=== PATIENT | female | born 1955 | race Caucasian/White ===

== ENCOUNTER 2017-06-16 22:19 | Inpatient (IN) | payer BC, OTHER ==
[2017-06-16] MEDS ORDERED: EPINEPHrine/PF 1 MG/1 ML (1:1,000) AMPULE ONE ×2 (22:27→23:11)
[2017-06-16] MEDS ORDERED: methylPREDNISolone NA SUCC 125 MG/2 ML VIAL ONE (22:28)
[2017-06-16] MEDS ORDERED: FAMOTIDINE 20 MG/50 ML IVPB 50 ML IVPB ONE ×2 (22:31→22:36)
[2017-06-16] MEDS ORDERED: SODIUM CHLORIDE 1,000 ML IV STA (22:31)
[2017-06-16] MEDS ORDERED: EPINEPHrine 1:1,000 1 MG/1 ML - 30ML VIAL (INJECTION) SQ ONE (22:31)
[2017-06-16] MEDS ORDERED: methylPREDNISolone NA SUCC 125 MG/2 ML VIAL IVPB ONE (22:36)
[2017-06-16] MEDS ORDERED: EPINEPHrine/PF 1 MG/1 ML (1:1,000) AMPULE IM ONE (23:01)
--- NOTE | 2017-06-16 23:08 | PDOC ---
History of Present Illness - General Chief Complaint: Allergic Reaction Stated Complaint: SOB/ ALLERGIC REACTION Time Seen by Provider: 06/16/17 22:25 History Source: Patient Exam Limitations: No Limitations - History of Present Illness Initial Comments: 06/16/17 23:03 61yo Female patient w/ PmHx: HTN, HLD, Angioedema presents to ED c/o tongue and mouth swelling. Patient states she was eating a bag of mixed vegetables as usual when her mouth began to swelling. Patient became concern because swelling extended down to her throat. Patient having difficulty talking, but is managing saliva and moving air. She denies any other complaints and use of JAVED/ARBs. Past History - Travel Traveled outside of the country in the last 30 days: No Close contact w/someone who was outside of country & ill: No - Past Medical History Allergies/Adverse Reactions: Allergies Allergy/AdvReac Type Severity Reaction Status Date / Time No Known Allergies Allergy Verified 06/16/17 22:40 Home Medications: Ambulatory Orders NK [No Known Home Medication] 06/16/17 - Psycho/Social/Smoking Cessation Hx Suicidal Ideation: No Smoking History: Unknown if ever smoked Information on smoking cessation initiated: No Hx Alcohol Use: No Drug/Substance Use Hx: No Review of Systems - Review of Systems Able to Perform ROS?: Yes Is the patient limited Vietnamese proficient: No HEENTM: Yes: Throat Swelling, Mouth Swelling, Other (Tongue Swelling) Respiratory: No: Cough, Shortness of Breath, Stridor, Wheezing Cardiac (ROS): No: Chest Pain ABD/GI: No: Constipated, Diarrhea, Nausea, Poor Appetite, Poor Fluid Intake, Vomiting : No: Dysuria, Flank Pain, Hematuria Musculoskeletal: No: Back Pain All Other Systems: Reviewed and Negative *Physical Exam - Vital Signs Last Vital Signs Temp Pulse Resp BP Pulse Ox 97.7 F 89 22 144/76 96 06/16/17 22:20 06/16/17 22:20 06/16/17 22:20 06/16/17 22:20 06/16/17 22:20 - Physical Exam General Appearance: Yes: Nourished, Appropriately Dressed, Mild Distress. No: Apparent Distress, Moderate Distress, Severe Distress HEENT: positive: EOMI, BENJAMIN, Normal ENT Inspection, Normal Voice, Symmetrical, TMs Normal, Other (Swollen Tongue, lips and throat. Mild.). negative: Pharynx Normal, Pharyngeal Erythema, Tonsillar Exudate, Tonsillar Erythema, TM Bulging, TM Dull, TM Erythema, Excessive drooling Neck: positive: Trachea midline, Normal Thyroid, Supple. negative: Tender, Rigid, Decreased range of motion, Lymphadenopathy (R), Lymphadenopathy (L), Rigidity, Tender lateral, Tender midline Respiratory/Chest: positive: Lungs Clear, Normal Breath Sounds. negative: Chest Tender, Respiratory Distress, Accessory Muscle Use, Labored Respiration, Rapid RR, Rhonchi, Stridor, Wheezing Cardiovascular: positive: Regular Rhythm, Regular Rate Musculoskeletal: positive: Normal Inspection. negative: CVA Tenderness Extremity: positive: Normal Capillary Refill, Normal Inspection, Normal Range of Motion. negative: Pedal Edema, Swelling, Calf Tenderness, Erythema, Inflammation Integumentary: positive: Normal Color, Dry, Warm. 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, Fully Oriented, Alert, Normal Mood/ Affect, Normal Response, Motor Strength 02/25 ED Treatment Course - LABORATORY CBC & Chemistry Diagram: 06/16/17 23:25 06/16/17 23:25 - Medications Given in the ED: ED Medications Discontinued Medications Generic Name Dose Route Start Last Admin Trade Name Freq PRN Reason Stop Dose Admin Diphenhydramine HCl 50 mg 06/16/17 22:36 06/16/17 22:37 Benadryl Injection - IVPB 06/16/17 22:37 50 mg ONCE ONE Administration Epinephrine HCl 300 mcg 06/16/17 22:31 06/16/17 22:37 Epinephrine 1:1,000 - SQ 06/16/17 22:32 300 mcg ONCE ONE Administration Famotidine/Sodium Chloride 50 mls @ 100 mls/hr 06/16/17 22:31 06/16/17 22:37 Pepcid 20 Mg Premixed Ivpb - IVPB 06/16/17 23:00 100 mls/hr ONCE ONE Administration Methylprednisolone Sodium Succinate 125 mg 06/16/17 22:36 06/16/17 22:38 Solu-Medrol - IVPB 06/16/17 22:37 125 mg ONCE ONE Administration Medical Decision Making - Medical Decision Making 06/17/17 02:10 Initially ICU did not accept patient. Dr. Mead contact ICU practitioner and patient was accepted. I did not give report or HPI to the accepting provider. *DC/Admit/Observation/Transfer Diagnosis at time of Disposition: Angioedema Qualifiers: Encounter type: initial encounter Qualified Code(s): T78.3XXA - Angioneurotic edema, initial encounter - Discharge Dispostion Condition at time of disposition: Fair Admit: Yes
--- NOTE | 2017-06-16 23:29 | PDOC ---
*Physical Exam - Vital Signs Last Vital Signs Temp Pulse Resp BP Pulse Ox 97.7 F 91 H 20 144/76 98 06/16/17 22:20 06/16/17 23:21 06/16/17 23:21 06/16/17 22:20 06/16/17 23:21 ED Treatment Course - LABORATORY CBC & Chemistry Diagram: 06/18/17 06:00 06/18/17 06:00 - Medications Given in the ED: ED Medications Discontinued Medications Generic Name Dose Route Start Last Admin Trade Name Lydia PRN Reason Stop Dose Admin Diphenhydramine HCl 50 mg 06/16/17 22:36 06/16/17 22:37 Benadryl Injection - IVPB 06/16/17 22:37 50 mg ONCE ONE Administration Epinephrine HCl 300 mcg 06/16/17 22:31 06/16/17 22:37 Epinephrine 1:1,000 - SQ 06/16/17 22:32 300 mcg ONCE ONE Administration Epinephrine HCl 500 mcg 06/16/17 23:01 06/16/17 23:14 Epinephrine 1:1000 P/F - IM 06/16/17 23:02 500 mcg ONCE ONE Administration Famotidine/Sodium Chloride 50 mls @ 100 mls/hr 06/16/17 22:31 06/16/17 22:37 Pepcid 20 Mg Premixed Ivpb - IVPB 06/16/17 23:00 100 mls/hr ONCE ONE Administration Famotidine/Sodium Chloride 50 mls @ 100 mls/hr 06/16/17 22:36 06/16/17 22:38 Pepcid 20 Mg Premixed Ivpb - IVPB 06/16/17 23:05 Not Given ONCE ONE Methylprednisolone Sodium Succinate 125 mg 06/16/17 22:36 06/16/17 22:38 Solu-Medrol - IVPB 06/16/17 22:37 125 mg ONCE ONE Administration Medical Decision Making - Medical Decision Making 06/16/17 23:29 agree with care from KELSIE Daniels *DC/Admit/Observation/Transfer Diagnosis at time of Disposition: Angio-edema - Discharge Dispostion Disposition: HOME Condition at time of disposition: Improved - Prescriptions
[2017-06-16 23:46] LABS: BASOPHIL 0.8 % (0-2.0); EOSINOPHIL 3.3 % (0-4.5); MCHC 33.8 g/dl (32.0-36.0); MEAN CELL VOLUME 100.8 fl (80-96); MEAN PLT VOLUME 7.8 fl (7.5-11.1); NEUTROPHILS 55.2 % (42.8-82.8); PLATELET COUNT 263 K/MM3 (134-434); RDW 13.4 % (11.6-15.6); WHITE BLOOD COUNT 15.4 K/mm3 (4.0-10.0)
[2017-06-17 00:10] LABS: ALBUMIN 3.8 g/dl (3.4-5.0); BILIRUBIN,TOTAL 0.6 mg/dL (0.2-1.0); CALCIUM 8.5 mg/dL (8.5-10.1); CO2 24 mmol/L (21-32); CREATININE 0.7 mg/dL (0.55-1.02); GLUCOSE,RANDOM 169 mg/dL (74-106); SGOT/AST 58 U/L (15-37); SGPT/ALT 76 U/L (12-78); TOT PROT 6.9 g/dl (6.4-8.2)
[2017-06-17 00:52] LABS: ALK PHOS 133 U/L (45-117); ANION GAP 13 (8-16)
--- NOTE | 2017-06-17 00:52 | PN ---
Teaching Attending Note Name of Resident: Opal Lomeli ATTENDING PHYSICIAN STATEMENT I saw and evaluated the patient. I reviewed the resident's note and discussed the case with the resident. I agree with the resident's findings and plan as documented. SUBJECTIVE: 61 F with Pmhx of HTN, HLD, and angioedema presents with edema of her tongue/ mouth, Notes she was eating mixed vegetables when she felt her tongue and mouth swell. Upon arrival to ED, pt. was having difficulty speaking, she was given Epi , Pepcid, Benadryl, and Solu-Medrol in ED, with improvement in her symptoms. Pt. able to speak full sentences, although not clearly. States that 4X in the past her tongue has swollen, but never to this extent and she did not seek medical attention at that time. OBJECTIVE: Physical: VS: Vital Signs Period Temp Pulse Resp BP Sys/Hurtado Pulse Ox Last 24 Hr 97.7 F 89-91 20-22 144/76 96-98 GEN: NAD, resting in bed, able to speak full sentences HEENT: NCAT, PERRL, Tongue edematous with swelling to arch, unable to view adenoids or uvula due to tongue edema CARD: RRR S1, S2 RESP: CTAB ABD: BSX4, NTD to palpation EXT: - C/C/E CBCD WBC 15.4 K/mm3 (4.0-10.0) H 06/16/17 23:25 RBC 3.97 M/mm3 (3.60-5.2) 06/16/17 23:25 Hgb 13.5 GM/dL (10.7-15.3) 06/16/17 23:25 Hct 40.0 % (32.4-45.2) 06/16/17 23:25 MCV 100.8 fl (80-96) H 06/16/17 23:25 MCHC 33.8 g/dl (32.0-36.0) 06/16/17 23:25 RDW 13.4 % (11.6-15.6) 06/16/17 23:25 Plt Count 263 K/MM3 (134-434) 06/16/17 23:25 MPV 7.8 fl (7.5-11.1) 06/16/17 23:25 CMP Sodium 138 mmol/L (136-145) 06/16/17 23:25 Potassium 3.3 mmol/L (3.5-5.1) L 06/16/17 23:25 Chloride 101 mmol/L (98-107) 06/16/17 23:25 Carbon Dioxide 24 mmol/L (21-32) 06/16/17 23:25 Anion Gap 13 (8-16) 06/16/17 23:25 BUN 17 mg/dL (7-18) 06/16/17 23:25 Creatinine 0.7 mg/dL (0.55-1.02) 06/16/17 23:25 Creat Clearance w eGFR > 60 (>60) 06/16/17 23:25 Random Glucose 169 mg/dL (74-106) H 06/16/17 23:25 Calcium 8.5 mg/dL (8.5-10.1) 06/16/17 23:25 Total Bilirubin 0.6 mg/dL (0.2-1.0) 06/16/17 23:25 AST 58 U/L (15-37) H 06/16/17 23:25 ALT 76 U/L (12-78) 06/16/17 23:25 Alkaline Phosphatase 133 U/L (45-117) H 06/16/17 23:25 Total Protein 6.9 g/dl (6.4-8.2) 06/16/17 23:25 Albumin 3.8 g/dl (3.4-5.0) 06/16/17 23:25 Home Medications Medication Instructions Recorded NK [No Known Home Medication] 06/16/17 Soft Tissue Neck- Pending official read ASSESSMENT AND PLAN: 61 F with pmhx of HTN, Smoking,HLD, And Angioedema presents with tongue, mouth edema being admitted for Angioedema 1.) Angioedema - NPO - ESR, CRP, C4 - FFP if no Impovement or worsening 4 U as per ENT - S/P Epi X3, Benadryl, Jenna-Medrol, Pepcid- Can repeat Benadryl/Solu-Medrol if symptoms worsen or epi gtt - FU Soft-Tissue Neck - ENT consulted and reccs appreciated 2.) HTN - On Amlodipine, denies any JAVED/ARBS - Hold PO Meds 3.) HLD - Hold PO meds 4.) Smoking - HOLD Chantix as this can cause Angioedema 5.) Dvt PPx - Heparin [address] in ICU CC Time: 60 Minutes
[2017-06-17] MEDS ORDERED: EPINEPHrine 1:1,000 1 MG/1 ML - 30ML VIAL (INJECTION) SQ ONE (02:05)
[2017-06-17 03:12] VITALS: BMI 25.7
[2017-06-17] MEDS ORDERED: PNEUMOC 13-VAL CONJ-DIP CRM/PF 0.5 ML DISP.SYRIN IM ONE (03:12)
[2017-06-17] MEDS: SODIUM CHLORIDE 1,000 ML IV SCH ×4 (03:30→21:28)
--- NOTE | 2017-06-17 04:07 | HP ---
CHIEF COMPLAINT: tongue and throat swelling ENT/Section Housekeeper/PCP(?): Dr. Knowles HISTORY OF PRESENT ILLNESS: 61yo F with PMH of HTN, HLD, angioedema presents c/o tongue and throat swelling. Swelling began at 8:45pm tonight, 30-40 minutes after she finished eating dinner consisting of steak, beans and mixed vegetables. None of these foods are new for her, she has eaten each of these foods before. Swelling started with her tongue and spread down her throat, prompting pt to come to the ER. Pt reports a hx of a few episodes of angioedema, but each time it only involved her tongue swelling into a ball, the swelling never spread to her throat. The pt did not seek medical attention on any of these previous occasions. The first episode was 7 yrs ago, and pt reports 4 episodes in the last year. The pt attibutes the episodes from this year to perfume. She sprays her perfume in the air and walks through the mist, sometimes a drop of perfume will land on her lip that she removes with her tongue, and she noticed a pattern of this resulting in tongue swelling. She no longer uses perfume. Pt reports seeing an Section Housekeeper/ENT (Dr. Knowles) who gives her injections in her nose for unknown environmental allergies. Regarding this episode pt reports the only change in her daily life is starting a new medication, Chantix , 2 days ago. Pt reports Chantix causes her to feel nauseous, resulting in 1 episode of nbnb vomiting earlier today, (prior to angioedema). Upon arrival in ER pt was having difficulty speaking 2/2 swelling, but was managing her saliva and air movement. In ER pt was given Epinephrine, Pepcid, Benadryl, and Solu-medrol with some improvement of symptoms. At time of interview pt was able to speak in full sentences and reports the swelling is going down. Pt denies use of ACEi/ARB. ER course was notable for: (1) Epi, Pepcid, Benadryl, Solu-medrol (2) CXR, Soft-Tissue Neck XRay both pending Recent Travel: none PAST MEDICAL HISTORY: angioedema HTN HLD PAST SURGICAL HISTORY: Social History: Smokin ppd x 45 yrs Alcohol: 2 drinks per day, wine Drugs: none Family History: No family hx of angioedema. Daughter with allergy to peas, carries an Epi pen for this allergy. Allergies Unknown environmental allergies No Known Allergies Allergy (Verified 06/16/17 22:40) HOME MEDICATIONS: Pt reports home meds of Albuterol, Singulair, Amlodipine, Nexium, a pill for bladder strength and Chantix, uncertain of doses. Home Medications Medication Instructions Recorded NK [No Known Home Medication] 06/16/17 REVIEW OF SYSTEMS CONSTITUTIONAL: Absent: fever, chills, diaphoresis, generalized weakness, HEENT: Present: tongue and throat swelling, tongue pain Absent: throat pain, ear pain, eye pain, visual changes CARDIOVASCULAR: Absent: chest pain, palpitations, irregular heart rate, lightheadedness, peripheral edema RESPIRATORY: Absent: cough, shortness of breath, dyspnea with exertion, wheezing, stridor, hemoptysis GASTROINTESTINAL: Present: nausea, vomiting Absent: abdominal pain, abdominal distension, diarrhea, constipation, melena, hematochezia GENITOURINARY: Present: urgency Absent: dysuria, frequency, hesitancy, hematuria, flank pain MUSCULOSKELETAL: Absent: myalgia, arthralgia, joint swelling, back pain SKIN: Absent: rash, itching, pallor NEUROLOGIC: Absent: focal weakness or paresthesias, dizziness, unsteady gait, seizure, mental status changes, bladder or bowel incontinence PHYSICAL EXAMINATION Last Vital Signs Temp Pulse Resp BP Pulse Ox 97.8 F 88 17 128/71 98 06/17/17 02:21 06/17/17 02:23 06/17/17 02:23 06/17/17 02:23 06/17/17 02:23 GENERAL: Awake, alert, and fully oriented, in mild distress. HEAD: Normal with no signs of trauma. EYES: Pupils equal, round and reactive to light, extraocular movements intact, sclera anicteric, conjunctiva clear. No lid lag. EARS, NOSE, THROAT: Mallampati score IV. Unable to visualize adenoids or uvula. Moist mucous membranes. LUNGS: Breath sounds equal, clear to auscultation bilaterally. No wheezes, and no crackles. No accessory muscle use. HEART: Regular rate and rhythm, normal S1 and S2 without murmur, rub or gallop. ABDOMEN: Soft, nontender, not distended, normoactive bowel sounds, no guarding, no rebound, no masses. MUSCULOSKELETAL: Normal range of motion at all joints. No bony deformities or tenderness. LOWER EXTREMITIES: Warm, well-perfused. No calf tenderness. No peripheral edema. NEUROLOGICAL: Normal speech. PSYCHIATRIC: Cooperative. Good eye contact. Appropriate mood and affect. SKIN: (-) urticaria. Warm, dry, normal turgor, no rashes or lesions noted. Laboratory Results - last 24 hr 06/16/17 06/16/17 23:25 23:25 WBC 15.4 H RBC 3.97 Hgb 13.5 Hct 40.0 MCV 100.8 H MCH 34.0 H MCHC 33.8 RDW 13.4 Plt Count 263 MPV 7.8 Neutrophils % 55.2 Lymphocytes % 34.7 Monocytes % 6.0 Eosinophils % 3.3 Basophils % 0.8 Sodium 138 Potassium 3.3 L Chloride 101 Carbon Dioxide 24 Anion Gap 13 BUN 17 Creatinine 0.7 Creat Clearance w eGFR > 60 Random Glucose 169 H Calcium 8.5 Total Bilirubin 0.6 AST 58 H ALT 76 Alkaline Phosphatase 133 H Total Protein 6.9 Albumin 3.8 IMAGIN06/16/17 CXR pending 06/17/17 Soft Tissue Neck XRay pending ASSESSMENT/PLAN: 61yo F with PMH of HTN, HLD, angioedema presents c/o tongue and throat swelling admitted to ICU for angioedema. 1) angioedema - ENT Consult - Dr. Vigil recommends 4U of FFP only if no improvement or worsening of symptoms - f/u Soft Tissue Neck XRay and CXR - can cont. Benadryl and Solu-medrol if symptoms worsen - f/u C1 Esterase inhibitor, Complement C4, ESR, CRP 2) HTN - Hold PO meds - No ACEi/ARB 3) smoking - HOLD CHANTIX 2/2 possible adverse rxn of angioedema - nicotine patch 21mg TD daily 4) asthma? - Pt reports taking Albuterol and Singulair for her environmental allergies. No hx of asthma reported. 5) FEN - Fluids: NS @ 125 ml/hr - Electrolytes: mild hypokalemia noted, may be 2/2 vomiting episode related to Chantix. Cont. to monitor - Nutrition: npo 2/2 angioedema 6) prophylaxis - Heparin 5000U q8hrs for DVT prophylaxis Visit type - Emergency Visit Emergency Visit: Yes Care time: The patient presented to the Emergency Department on the above date and was hospitalized for further evaluation of their emergent condition. - New Patient This patient is new to me today: Yes Date on this admission: 06/17/17 - Critical Care Critical Care patient: Yes Total Critical Care Time (in minutes): 60 Critical Care Statement: The care of this patient involved high complexity decision making to prevent further life threatening deterioration of the patient 's condition and/or to evaluate & treat vital organ system(s) failure or risk of failure.
--- NOTE | 2017-06-17 04:56 | CONSULT ---
Consult Consult Specialty:: Pulm/CCM - History of Present Illness Chief Complaint: Angioedema History of Present Illness: 61yo F with PMH of HTN, HLD, recurrent tongue swelling (4x in past year) who presents with c/o tongue swelling and now extending to throat. Etiology of angioedema unclear. Pt sees allergists for environmental allegies. She recently started Chantix. In ED pt was not in NAD, with no report of stridor, but with drooling and slight SOB. She was seen by ENT and treated with Epinephrine, Benadryl, Pepcid, Solumedrol with improvment in symptoms. She was transferred to ICU for observation and further management. - History Source History Provided By: Patient, Medical Record - Past Medical History Cardio/Vascular: Yes: HTN Pulmonary: Yes: Other (Sinus congestion) ...: No - Alcohol/Substance Use Hx Alcohol Use: Yes - Smoking History Smoking history: Current every day smoker Have you smoked in the past 12 months: Yes Aproximately how many cigarettes per day: 10 Home Medications - Allergies Allergies/Adverse Reactions: Allergies Allergy/AdvReac Type Severity Reaction Status Date / Time No Known Allergies Allergy Verified 06/16/17 22:40 - Home Medications Home Medications: Ambulatory Orders NK [No Known Home Medication] 06/16/17 Family Disease History - Family Disease History Family History: Unremarkable Review of Systems - Review of Systems Constitutional: reports: No Symptoms Eyes: reports: No Symptoms HENT: reports: Difficult Swallowing, Mouth Swelling Neck: reports: No Symptoms Cardiovascular: reports: No Symptoms Respiratory: reports: SOB Gastrointestinal: reports: No Symptoms Genitourinary: reports: Hematuria Breasts: reports: No Symptoms Reported Musculoskeletal: reports: No Symptoms Integumentary: reports: No Symptoms Neurological: reports: No Symptoms Hematology/Lymphatic: reports: No Symptoms Psychiatric: reports: No Symptoms Physical Exam Vital Signs: Vital Signs Temperature 97.8 F 06/17/17 02:21 Pulse Rate 79 06/17/17 02:27 Respiratory Rate 18 06/17/17 02:27 Blood Pressure 132/71 06/17/17 02:27 O2 Sat by Pulse Oximetry (%) 98 06/17/17 02:23 Constitutional: Yes: Well Nourished, No Distress Eyes: Yes: WNL HENT: Yes: WNL Neck: Yes: WNL, Trachea Midline Cardiovascular: Yes: WNL, Regular Rate and Rhythm Respiratory: Yes: Regular Gastrointestinal: Yes: WNL, Soft, Abdomen, Obese Renal/: Yes: WNL Extremities: Yes: WNL Edema: No Peripheral Pulses WNL: Yes Neurological: Yes: Alert ...Motor Strength: WNL Problem List - Problems (1) Angio-edema Code(s): T78.3XXA - ANGIONEUROTIC EDEMA, INITIAL ENCOUNTER Qualifiers: Encounter type: initial encounter Qualified Code(s): T78.3XXA - Angioneurotic edema, initial encounter Assessment/Plan 61 divine with Hx HTN, smoker, seasonal allergies who presents with angioedema, drooling, SOB, Symptoms relieved with Epi, Benadryl, Pepcid, solumedrol. Plan: - ENT Consult to reassess -Benadryl and Solu-medrol if symptoms worsen -NPO for now. -IVF as needed - nicotine patch 21mg TD daily -Monitor for ETOH withdrawal Proph: Hep SQ
[2017-06-17] MEDS: NICOTINE 21 MG/24 HOURS TOPICAL PATCH TD SCH ×2 (05:19→10:03)
[2017-06-17] MEDS: HEPARIN NA (PORCINE) 5,000 UNITS/ML 1ML VIAL SQ SCH ×3 (05:22→21:20)
[2017-06-17 06:15] LABS: MCH 34.3 pg (25.7-33.7); MCHC 34.3 g/dl (32.0-36.0); MEAN CELL VOLUME 100.1 fl (80-96); MEAN PLT VOLUME 8.1 fl (7.5-11.1); PLATELET COUNT 266 K/MM3 (134-434); RDW 13.5 % (11.6-15.6)
[2017-06-17 06:56] LABS: ANION GAP 6 (8-16); CALCIUM 9.3 mg/dL (8.5-10.1); CO2 26 mmol/L (21-32); CREATININE 0.7 mg/dL (0.55-1.02); GLUCOSE,RANDOM 160 mg/dL (74-106); SGOT/AST 48 U/L (15-37); SGPT/ALT 80 U/L (12-78)
[2017-06-17 06:58] LABS: ALK PHOS 152 U/L (45-117); BILIRUBIN,TOTAL 0.5 mg/dL (0.2-1.0); TOT PROT 7.3 g/dl (6.4-8.2)
[2017-06-17] MEDS ORDERED: PNEUMOCOCCAL 23 VACCINE 0.5 ML VIAL IM ONE (09:00)
[2017-06-17 09:32] LABS: URINE APPEARANCE CLEAR; URINE BILIRUBIN NEGATIVE (NEGATIVE); URINE BLOOD NEGATIVE (NEGATIVE); URINE COLOR STRAW; URINE GLUCOSE (UA) NEGATIVE (NEGATIVE); URINE KETONE TRACE (NEGATIVE); URINE LEUK ESTERASE NEGATIVE (NEGATIVE); URINE NITRITE NEGATIVE (NEGATIVE); URINE PROTEIN NEGATIVE (NEGATIVE); URINE UROBILINOGEN NEGATIVE mg/dL (0.2-1.0)
[2017-06-17] MEDS ORDERED: diphenhydrAMINE HCL 50 MG CAPSULE PO PRN ×2 (09:47→17:23)
[2017-06-17] MEDS ORDERED: methylPREDNISolone NA SUCC 125 MG/2 ML VIAL IVPB SCH (10:00)
[2017-06-17] MEDS ORDERED: RANITIDINE HCL 150 MG TABLET (FP) PO SCH (10:00)
[2017-06-17] MEDS ORDERED: FAMOTIDINE 20 MG/50 ML IVPB 50 ML IVPB SCH (10:00)
[2017-06-17] MEDS ORDERED: MUPIROCIN 2% TOPICAL OINTMENT FOR DECOLONIZATION NS SCH (10:00)
--- NOTE | 2017-06-17 12:06 | EKG ---
Test Reason : Blood Pressure : / mmHG Vent. Rate : 101 BPM Atrial Rate : 101 BPM P-R Int : 126 ms QRS Dur : 082 ms QT Int : 368 ms P-R-T Axes : 066 043 031 degrees QTc Int : 477 ms SINUS TACHYCARDIA POSSIBLE LEFT ATRIAL ENLARGEMENT NONSPECIFIC ST AND T WAVE ABNORMALITY ABNORMAL ECG NO PREVIOUS ECGS AVAILABLE Confirmed by MD ADORE, DERRICK ([id number]) on 06/17/2017 12:06:02 PM Referred By: Confirmed By:DERRICK AVITIA MD
[2017-06-17] MEDS ORDERED: SOLIFENACIN SUCCINATE 5 MG TAB (FP) PO SCH (13:15)
[2017-06-17] MEDS ORDERED: CITALOPRAM HYDROBROMIDE 20 MG TABLET (FP) PO SCH (13:15)
[2017-06-17] MEDS ORDERED: LACTOBACILLUS ACIDOPHILUS 1 EACH TAB (FP) PO SCH (13:15)
[2017-06-17] MEDS ORDERED: MONTELUKAST NA 10 MG TABLET PO SCH (13:15)
[2017-06-17] MEDS ORDERED: ASPIRIN COATED 81 MG TABLET.EC PO SCH (13:15)
[2017-06-17] MEDS ORDERED: PATIENT'S OWN MEDICATION (NON-FORMULARY) (Amlodipine Besylate/Benazepril [Lotrel 5-10 Mg C PO SCH (13:15)
--- NOTE | 2017-06-17 13:21 | PN ---
Physical Exam: SUBJECTIVE: Patient seen and examined Feels better. Denies sob, Denies difficulty in swallowing States her swelling has decreased but still has some swelling on tongue. Voice at her base line. Patient had swallowed liquids without difficulty OBJECTIVE: Vital Signs Period Temp Pulse Resp BP Sys/Hurtado Pulse Ox Last 24 Hr 97.8 F-98.3 F 65-90 16-22 128-144/71-86 97-98 GENERAL: The patient is awake, alert, and fully oriented, in no acute distress. HEAD: Normal with no signs of trauma. ENT: moist mucous membranes. NECK: Trachea midline, full range of motion, supple. LUNGS: Breath sounds equal, clear to auscultation bilaterally, no wheezes, no crackles, no accessory muscle use. HEART: Regular rate and rhythm, S1, S2 without murmur, rub or gallop. ABDOMEN: Soft, nontender, nondistended, normoactive bowel sounds, no guarding, no rebound, EXTREMITIES: 2+ pulses, warm, well-perfused, no edema. PSYCH: Normal mood, normal affect. SKIN: Warm, dry, Laboratory Results - last 24 hr 06/17/17 06/17/17 06/17/17 05:20 05:20 05:20 WBC 12.0 H RBC 4.04 Hgb 13.9 Hct 40.5 MCV 100.1 H MCH 34.3 H MCHC 34.3 RDW 13.5 Plt Count 266 MPV 8.1 ESR Sodium 136 Potassium 4.8 D Chloride 104 Carbon Dioxide 26 Anion Gap 6 L BUN 13 D Creatinine 0.7 Creat Clearance w eGFR > 60 Random Glucose 160 H Calcium 9.3 Total Bilirubin 0.5 AST 48 H ALT 80 H Alkaline Phosphatase 152 H C-Reactive Protein 0.6 H Total Protein 7.3 Albumin 4.0 Urine Color Urine Appearance Urine pH Urine Protein Urine Glucose (UA) Urine Ketones Urine Blood Urine Nitrite Urine Bilirubin Urine Urobilinogen Ur Leukocyte Esterase 06/17/17 06/17/17 05:20 08:50 WBC RBC Hgb Hct MCV MCH MCHC RDW Plt Count MPV ESR 15 Sodium Potassium Chloride Carbon Dioxide Anion Gap BUN Creatinine Creat Clearance w eGFR Random Glucose Calcium Total Bilirubin AST ALT Alkaline Phosphatase C-Reactive Protein Total Protein Albumin Urine Color Straw Urine Appearance Clear Urine pH 7.0 Urine Protein Negative Urine Glucose (UA) Negative Urine Ketones Trace H Urine Blood Negative Urine Nitrite Negative Urine Bilirubin Negative Urine Urobilinogen Negative Ur Leukocyte Esterase Negative Active Medications Generic Name Dose Route Start Last Admin Trade Name Freq PRN Reason Stop Dose Admin Aspirin 81 mg 06/17/17 13:15 Ecotrin - PO DAILY [facility] Chlorhexidine Gluconate 1 applic 06/17/17 22:00 Hibiclens For Decolonization - TP HS REUBEN Diphenhydramine HCl 50 mg 06/17/17 09:47 Benadryl - PO DAILY PRN FOR ITCHING Heparin Sodium (Porcine) 5,000 unit 06/17/17 06:00 06/17/17 05:22 Heparin - SQ 5,000 unit TID REUBEN Administration Sodium Chloride 1,000 mls @ 125 mls/hr 06/17/17 02:45 06/17/17 03:30 Normal Saline - IV 125 mls/hr ASDIR REUBEN Administration Methylprednisolone Sodium Succinate 60 mg 06/17/17 10:00 06/17/17 10:00 Solu-Medrol - IVPB 60 mg BID REUBEN Administration Montelukast Sodium 10 mg 06/17/17 13:15 Singulair - PO DAILY [facility] Mupirocin 1 applic 06/17/17 10:00 06/17/17 11:00 Bactroban Ointment (For Decolonization) - NS 06/22/17 09:59 1 applic BID REUBEN Administration Nicotine 21 mg 06/17/17 05:15 06/17/17 10:03 Nicoderm Patch - TD Not Given DAILY [facility] Non-Formulary Medication 1 cap 06/17/17 13:15 Amlodipine Besylate/Benazepril [Lotrel 5-10 Mg Capsule] PO DAILY [facility] Non-Formulary Medication 40 mg 06/17/17 13:15 Citalopram Hydrobromide [Celexa -] PO DAILY [facility] Non-Formulary Medication 1 tab 06/17/17 13:15 Lactobacillus Acidophilus [Probiotic Acidophilus] PO DAILY [facility] Non-Formulary Medication 600 mg 06/17/17 14:00 Oxcarbazepine [Oxcarbazepine] PO TID RE[facility] Pregabalin 75 mg 06/17/17 14:00 Lyrica - PO TID [facility] Ranitidine HCl 150 mg 06/17/17 10:00 06/17/17 10:00 Zantac - PO 150 mg DAILY [facility] Administration Solifenacin 5 mg 06/17/17 13:15 Vesicare - PO DAILY [facility] ASSESSMENT/PLAN: 61yo F with PMH of HTN, HLD, angioedema presents c/o tongue and throat swelling admitted to ICU for angioedema. 1) Angiodema resolved have some swelling on tongue continue with solumedrol taper. Pepcid 150mg bid Benadryl prn 2) HTN monitor and control BP. on lotrel 5-10mg cap 3) Smoking nicotine patch 21mg TD daily 4) h/o asthma on montelucast for allergic asthma. albuterol prn 5) Fluid: accepting orally electrolyte: repeat in am nutrition: sodium controlled 6) prophylaxis - Heparin 5000U q8hrs for DVT prophylaxis Gi pro: pepcid dispo: transfer to med surg Visit type - Emergency Visit Emergency Visit: Yes ED Registration Date: 06/17/17 Care time: The patient presented to the Emergency Department on the above date and was hospitalized for further evaluation of their emergent condition. - New Patient This patient is new to me today: Yes Date on this admission: 06/17/17 - Critical Care Critical Care patient: Yes Total Critical Care Time (in minutes): 45 Critical Care Statement: The care of this patient involved high complexity decision making to prevent further life threatening deterioration of the patient 's condition and/or to evaluate & treat vital organ system(s) failure or risk of failure.
[2017-06-17] MEDS ORDERED: PREGABALIN 75 MG CAPSULE PO SCH (14:00)
[2017-06-17] MEDS ORDERED: OXcarbazepine 300 MG TABLET (UD) PO SCH (14:00)
--- NOTE | 2017-06-17 14:47 | PN ---
Teaching Attending Note Name of Resident: Shania Gagnon ATTENDING PHYSICIAN STATEMENT I saw and evaluated the patient. I reviewed the resident's note and discussed the case with the resident. I agree with the resident's findings and plan as documented. SUBJECTIVE: Patient has no complaints. OBJECTIVE: Vital Signs Period Temp Pulse Resp BP Sys/Hurtado Pulse Ox Last 24 Hr 97.7 F-98.3 F 65-91 16-22 128-144/71-86 96-98 HEART: S1S2, RRR LUNGS: Clear ABDOMEN: Soft, non-tender, non-distended, normal BS EXTREMITIES: No edema ASSESSMENT AND PLAN: This is a 61 year old woman with a history of HTN, hyperlipidemia, angioedema who presented to the ER with tongue and throat swelling. 1. Angioedema - Improving - Continue SoluMedrol, Pepcid, Benadryl as needed 2. HTN - On no medication 3. Hyperlpidemia - On no medication 4. Nicotine dependence - Continue nicotine patch - Chantix discontinued secondary to possible allergic reaction
--- NOTE | 2017-06-17 15:22 | CON.ENT ---
Consult Consult Specialty:: ENT Referred by:: Dr Phillips Reason for Consultation:: Angioedema - History of Present Illness Chief Complaint: Swollen tongue History of Present Illness: 61yo F with PMH of HTN, HLD, angioedema presents c/o tongue and throat swelling. Swelling began at 8:45pm last night, 30-40 minutes after she finished eating dinner consisting of steak, beans and mixed vegetables. None of these foods are new for her, she has eaten each of these foods before. Swelling started with her tongue and spread down her throat, prompting pt to come to the ER. Pt reports a hx of a few episodes of angioedema, but were less severe. The pt did not seek medical attention on any of these previous occasions. The first episode was 7 yrs ago, and pt reports 4 episodes in the last year. The pt attibutes the episodes from this year to perfume. She sprays her perfume in the air and walks through the mist, sometimes a drop of perfume will land on her lip that she removes with her tongue, and she noticed a pattern of this resulting in tongue swelling. She no longer uses perfume. Dr Price has given her kenelog nasal injections for nasal allergies in the past. Regarding this episode pt reports the only change in her daily life is starting a new medication, Chantix, 2 days ago. Pt reports Chantix causes her to feel nauseous, resulting in 1 episode of vomiting. She is not on JAVED inhibitor and she responded to benedryl/pepcid/epi/ solumedrol. This am she is near 100% normal - History Source History Provided By: Patient, Medical Record Limitations to Obtaining History: No Limitations - Past Medical History Cardio/Vascular: Yes: HTN Pulmonary: Yes: Other (Sinus congestion) ...: No - Alcohol/Substance Use Hx Alcohol Use: Yes - Smoking History Smoking history: Current every day smoker Have you smoked in the past 12 months: Yes Aproximately how many cigarettes per day: 10 Home Medications - Allergies Allergies/Adverse Reactions: Allergies Allergy/AdvReac Type Severity Reaction Status Date / Time No Known Allergies Allergy Verified 06/16/17 22:40 - Home Medications Home Medications: Ambulatory Orders Amlodipine Besylate/Benazepril [Lotrel 5-10 mg Capsule] 1 cap PO DAILY 06/17/17 Aspirin [Ecotrin] 81 mg PO DAILY 06/17/17 Citalopram Hydrobromide [Celexa -] 40 mg PO DAILY 06/17/17 Lactobacillus Acidophilus [Probiotic Acidophilus] 1 tab PO DAILY 06/17/17 Montelukast Na [Singulair -] 10 mg PO DAILY 06/17/17 Oxcarbazepine 600 mg PO TID 06/17/17 Pregabalin [Lyrica -] 75 mg PO TID 06/17/17 Solifenacin Succinate [Vesicare -] 5 mg PO DAILY 06/17/17 Physical Exam-ENT Vital Signs: Vital Signs Temperature 98.1 F 06/17/17 14:00 Pulse Rate 67 06/17/17 14:00 Respiratory Rate 16 06/17/17 14:00 Blood Pressure 137/85 06/17/17 14:00 O2 Sat by Pulse Oximetry (%) 98 06/17/17 08:00 Constitutional: Yes: Well Nourished, No Distress Head: Yes: WNL, Atraumatic, Normocephalic Face: Yes: WNL, Symmetrical Eyes: Yes: WNL, Conjunctiva Clear Nose: Yes: WNL Nasal Passage: Yes: WNL Oral/Pharynx: Yes: WNL Outer Ear: Yes: WNL Ear Canal: Yes: WNL Neck: Yes: WNL Problem List - Problems (1) Angio-edema Assessment/Plan: Discharge on medrol DP, benedryl 25 bid. No more Chantix. f/U in ENT and Allergy office next week. Code(s): T78.3XXA - ANGIONEUROTIC EDEMA, INITIAL ENCOUNTER Qualifiers: Encounter type: initial encounter Qualified Code(s): T78.3XXA - Angioneurotic edema, initial encounter Procedure - Procedure and Findings -: Fiberoptic laryngoscopy: with topical lido/afrin: No lesions of nasoph/larynx/ hypopharynx. VC mobile and normal. No pooling. No edema.
--- NOTE | 2017-06-17 18:40 | PN ---
Physical Exam: SUBJECTIVE: Patient seen and examined this AM. Other than mild headache, no complaints. States that she no longer has trouble breathing. No CP, no SOB, no fevers, no chills. OBJECTIVE: Vital Signs Period Temp Pulse Resp BP Sys/Hurtado Pulse Ox Last 24 Hr 97.8 F-98.3 F 65-90 16-22 128-162/71-87 97-98 GEN: AAOx3, NAD, No cervical LAD HEENT: EOMi, PERRLA. No pharyngeal edema. Upper lip and tongue is mildly edematous, but overall facial swelling is dramatically reduced CV: S1, S2, RRR, no MRG LUNG: CTABL ABD: Soft, NT, ND MSK: No edema, no erythema NEURO: CN2-12 intact, no sensation deficits, no msk deficits Laboratory Results - last 24 hr 06/17/17 06/17/17 06/17/17 05:20 05:20 05:20 WBC 12.0 H RBC 4.04 Hgb 13.9 Hct 40.5 MCV 100.1 H MCH 34.3 H MCHC 34.3 RDW 13.5 Plt Count 266 MPV 8.1 ESR Sodium 136 Potassium 4.8 D Chloride 104 Carbon Dioxide 26 Anion Gap 6 L BUN 13 D Creatinine 0.7 Creat Clearance w eGFR > 60 Random Glucose 160 H Calcium 9.3 Total Bilirubin 0.5 AST 48 H ALT 80 H Alkaline Phosphatase 152 H C-Reactive Protein 0.6 H Total Protein 7.3 Albumin 4.0 Urine Color Urine Appearance Urine pH Ur Specific [place] Urine Protein Urine Glucose (UA) Urine Ketones Urine Blood Urine Nitrite Urine Bilirubin Urine Urobilinogen Ur Leukocyte Esterase 06/17/17 06/17/17 05:20 08:50 WBC RBC Hgb Hct MCV MCH MCHC RDW Plt Count MPV ESR 15 Sodium Potassium Chloride Carbon Dioxide Anion Gap BUN Creatinine Creat Clearance w eGFR Random Glucose Calcium Total Bilirubin AST ALT Alkaline Phosphatase C-Reactive Protein Total Protein Albumin Urine Color Straw Urine Appearance Clear Urine pH 7.0 Ur Specific [place] 1.015 Urine Protein Negative Urine Glucose (UA) Negative Urine Ketones Trace H Urine Blood Negative Urine Nitrite Negative Urine Bilirubin Negative Urine Urobilinogen Negative Ur Leukocyte Esterase Negative Home Medication List Medication Instructions Recorded Confirmed Type Amlodipine Besylate/Benazepril 1 cap PO DAILY 06/17/17 06/17/17 History [Lotrel 5-10 mg Capsule] Aspirin [Ecotrin] 81 mg PO DAILY 06/17/17 06/17/17 History Citalopram Hydrobromide [Celexa -] 40 mg PO DAILY 06/17/17 06/17/17 History Lactobacillus Acidophilus 1 tab PO DAILY 06/17/17 06/17/17 History [Probiotic Acidophilus] Montelukast Na [Singulair -] 10 mg PO DAILY 06/17/17 06/17/17 History Oxcarbazepine 600 mg PO TID 06/17/17 06/17/17 History Pregabalin [Lyrica -] 75 mg PO TID 06/17/17 06/17/17 History Solifenacin Succinate [Vesicare -] 5 mg PO DAILY 06/17/17 06/17/17 History Active Medications Generic Name Dose Route Start Last Admin Trade Name Freq PRN Reason Stop Dose Admin Amlodipine Besylate 5 mg 06/18/17 10:00 Norvasc - PO DAILY [facility] Aspirin 81 mg 06/18/17 10:00 Ecotrin - PO DAILY [facility] Chlorhexidine Gluconate 1 applic 06/17/17 22:00 Hibiclens For Decolonization - TP HS [facility] Citalopram Hydrobromide 40 mg 06/18/17 10:00 Celexa - PO DAILY [facility] Diphenhydramine HCl 50 mg 06/17/17 17:23 Benadryl - PO DAILY PRN FOR ITCHING Heparin Sodium (Porcine) 5,000 unit 06/17/17 22:00 Heparin - SQ TID [facility] Sodium Chloride 1,000 mls @ 125 mls/hr 06/17/17 17:23 06/17/17 17:25 Normal Saline - IV 125 mls/hr ASDIR REUBEN Administration Lactobacillus Acidophilus 1 tab 06/18/17 10:00 Bacid - PO DAILY [facility] Methylprednisolone Sodium Succinate 60 mg 06/17/17 22:00 Solu-Medrol - IVPB BID [facility] Montelukast Sodium 10 mg 06/18/17 10:00 Singulair - PO DAILY [facility] Mupirocin 1 applic 06/17/17 22:00 Bactroban Ointment (For Decolonization) - NS 06/22/17 09:59 BID [facility] Nicotine 21 mg 06/18/17 10:00 Nicoderm Patch - TD DAILY [facility] Oxcarbazepine 600 mg 06/17/17 22:00 Trileptal - PO TID [facility] Pregabalin 75 mg 06/17/17 22:00 Lyrica - PO TID [facility] Ranitidine HCl 150 mg 06/18/17 10:00 Zantac - PO DAILY [facility] Solifenacin 5 mg 06/18/17 10:00 Vesicare - PO DAILY [facility] ASSESSMENT/PLAN: 61yo F with PMH of HTN, HLD, angioedema presents c/o tongue and throat swelling admitted to ICU for angioedema. # Angioedema - Could be from Chantix, new medication started by patient, d/c'd chantix - Improving well - Continue steroids IV 60mg BID due to tongue swelling - Continue Zantac PO - ENT saw patient, performed laryngoscopy --> saw no lesions of nasoph/larynx /hypopharynx. VC mobile and normal. No pooling. No edema. - Soft tissue xr is unremarkable - F/u on J2Ruaevnod inhibitor + C4 to r/o HAE - Likely d/c tomorrow on Medrol dose pack, Benedryl 25mg BID - F/u in ENT and Allergy office within 1 week # Hx of HTN - Home med is not formulary - Norvasc 5mg, monitor BP - No ACEi # Smoking - D/c Chantix - Nicotine patch 21mg TD daily # Hx of Asthma - Continue singulair # Hx of Fibromyalgia - Continue lyrica, trileptal # FEN - Fluids: On NS 125cc/hr - discontinue if patient tolerating diet - Electrolytes: Monitor - Nutrition: Sodium controlled diet # Prophylaxis - DVT: Heparin SQ - GI: Not needed - Deconditioning: PT not needed, pt is ambulatory # Dispo - Likely d/c tomorrow on Medrol dose pack, benedryl 25mg BID, f/u ENT this week Visit type - Emergency Visit Emergency Visit: No - New Patient This patient is new to me today: No - Critical Care Critical Care patient: No - Discharge Referral Referred to [facility] No
[2017-06-17] MEDS: MUPIROCIN 2% TOPICAL OINTMENT FOR DECOLONIZATION NS SCH (21:18)
[2017-06-17] MEDS: methylPREDNISolone NA SUCC 125 MG/2 ML VIAL IVPB SCH (21:27)
[2017-06-17] MEDS: OXcarbazepine 300 MG TABLET (UD) PO SCH (21:48)
[2017-06-17] MEDS: PREGABALIN 75 MG CAPSULE PO SCH (21:48)
[2017-06-17] MEDS ORDERED: CHLORHEXIDINE GLUCONATE 4% CLEANSER FOR DECOLONIZATION TP SCH ×2 (22:00)
[2017-06-18] MEDS: PREGABALIN 75 MG CAPSULE PO SCH (06:34)
[2017-06-18] MEDS: OXcarbazepine 300 MG TABLET (UD) PO SCH (06:34)
[2017-06-18] MEDS: HEPARIN NA (PORCINE) 5,000 UNITS/ML 1ML VIAL SQ SCH (06:34)
[2017-06-18 07:49] LABS: BASOPHIL 0.4 % (0-2.0); EOSINOPHIL 0.1 % (0-4.5); MCH 33.9 pg (25.7-33.7); MCHC 33.5 g/dl (32.0-36.0); MEAN CELL VOLUME 101.1 fl (80-96); NEUTROPHILS 77.5 % (42.8-82.8); PLATELET COUNT 217 K/MM3 (134-434); RDW 13.2 % (11.6-15.6); WHITE BLOOD COUNT 12.3 K/mm3 (4.0-10.0)
[2017-06-18 08:05] LABS: ANION GAP 7 (8-16); CO2 28 mmol/L (21-32); CREATININE 0.6 mg/dL (0.55-1.02); GLUCOSE,RANDOM 161 mg/dL (74-106)
[2017-06-18 08:32] VITALS: BP 149/80; PULSE 60; TEMP 98.7
[2017-06-18] MEDS: methylPREDNISolone NA SUCC 125 MG/2 ML VIAL IVPB SCH (09:26)
[2017-06-18] MEDS: MUPIROCIN 2% TOPICAL OINTMENT FOR DECOLONIZATION NS SCH (09:28)
[2017-06-18] MEDS ORDERED: ASPIRIN COATED 81 MG TABLET.EC PO SCH (10:00)
[2017-06-18] MEDS ORDERED: amLODIPine BESYLATE 5 MG TABLET (FP) PO SCH (10:00)
[2017-06-18] MEDS ORDERED: NICOTINE 21 MG/24 HOURS TOPICAL PATCH TD SCH (10:00)
[2017-06-18] MEDS ORDERED: SOLIFENACIN SUCCINATE 5 MG TAB (FP) PO SCH (10:00)
[2017-06-18] MEDS ORDERED: RANITIDINE HCL 150 MG TABLET (FP) PO SCH (10:00)
[2017-06-18] MEDS ORDERED: PATIENT'S OWN MEDICATION (NON-FORMULARY) (Amlodipine Besylate/Benazepril [Lotrel 5-10 Mg C PO SCH (10:00)
[2017-06-18] MEDS ORDERED: LACTOBACILLUS ACIDOPHILUS 1 EACH TAB (FP) PO SCH (10:00)
[2017-06-18] MEDS ORDERED: CITALOPRAM HYDROBROMIDE 20 MG TABLET (FP) PO SCH (10:00)
[2017-06-18] MEDS ORDERED: MONTELUKAST NA 10 MG TABLET PO SCH (10:00)
[2017-06-18] MEDS ORDERED: LISINOPRIL 10 MG TABLET (FP) PO SCH (10:00)
--- NOTE | 2017-06-18 11:39 | DS ---
Physical Exam: SUBJECTIVE: Patient seen and examined at bedside. No overnight events. No new complaints. Her facial and tongue swelling have resolved. Denies CP, SCHMITT, SOB, palpitations, abd. pain , N/V. OBJECTIVE: Vital Signs Period Temp Pulse Resp BP Sys/Hurtado Pulse Ox Last 24 Hr 98.1 F-98.8 F 60-73 16-20 137-162/65-87 98-98 PHYSICAL EXAM GEN: AAOx3, NAD, No cervical LAD HEENT: EOMi, PERRLA. No pharyngeal edema. Upper lip and tongue edema completely resolved. ABD: Soft, NT, ND MSK: No edema, no erythema NEURO: CN2-12 intact, no sensation deficits, no msk deficits LABS Laboratory Results - last 24 hr 06/17/17 06/18/17 06/18/17 08:50 06:00 06:00 WBC 12.3 H RBC 3.69 Hgb 12.5 D Hct 37.3 MCV 101.1 H MCH 33.9 H MCHC 33.5 RDW 13.2 Plt Count 217 MPV 8.0 Neutrophils % 77.5 D Lymphocytes % 16.6 D Monocytes % 5.4 Eosinophils % 0.1 D Basophils % 0.4 Sodium 135 L Potassium 4.2 Chloride 100 Carbon Dioxide 28 Anion Gap 7 L BUN 9 D Creatinine 0.6 Random Glucose 161 H Calcium 9.0 Urine Color Straw Urine Appearance Clear Urine pH 7.0 Ur Specific [place] 1.015 Urine Protein Negative Urine Glucose (UA) Negative Urine Ketones Trace H Urine Blood Negative Urine Nitrite Negative Urine Bilirubin Negative Urine Urobilinogen Negative Ur Leukocyte Esterase Negative IMAGING: EXAM#: TYPE/EXAM: RESULT: [id number] RAD/NECK SOFT TISSUE Neck soft tissues: Preadmission AP and lateral views reveal degenerative changes with straightening and slight forward subluxation of C3 on C4 by several millimeters. There is some vertebral wedging. Blastic or lytic changes are not seen. There is no sign of a gross fracture. In the lateral view, C1 through the top of C7 is visualized. The trachea is midline. The apices are clear. If symptoms persist, further imaging with CT may be of help. Correlation recommended. Reported By: David Zamora MD 06/17/17 0824 HOSPITAL COURSE: 61yo F with PMH of HTN, HLD, angioedema presents c/o tongue and throat swelling admitted to ICU for angioedema. Given IV steroids, PPI and benedryl . Evaluated by ENT and laryngoscopy performed with showed no lesions of nasoph/ larynx/hypopharynx. VC mobile and normal. No pooling. No edema. XRAY of neck and soft tissues reported above. This was most likely secondary to Chantix she started recently. Will need to follow up with credit assistant as outpatient. Follow up with PCP and ENT in one week. Given tapered steroids, benedryl prn and epipen for discharge. C1 esterase inhibitor labs sent and pending. Instructed to return to ED if symptoms return.BP meds have been changed with discontinuation of combination drug and now just on Amlodipine. She is stable at the time of discharge. Date of Admission:06/17/17 Date of Discharge: 06/18/17 Minutes to complete discharge: 45 Discharge Summary Reason For Visit: ANGIO-EDEMA Current Active Problems Angio-edema (Acute) Asthma (Chronic) Hypertension (Chronic) Condition: Improved - Instructions Diet, Activity, Other Instructions: RECOMMENDATIONS - Keep 2 shots of Epinephrine with you at all times - Keep a symptom diary to know what your triggers are - Avoid any known allergen or trigger that causes symptoms - Stop taking chantix - Avoid any medications, herbs, or supplements that are not prescribed by a provider - Contact a medical professional if your symptoms do not respond to treatment NEW MEDICATIONS: - We changed your blood pressure meds from Amlodipine-Benzepril (03/02) --> Amlodipine 5mg daily - This may cause changes in your blood pressure, check your blood pressure daily and followup with your primary care doctor - Medrol Dose Pack - take until it finishes - Benedryl 25mg - take two times a day - Epi Pen - carry with you always - Nicotine Patch - use for smoking cessation FOLLOWUPS: - Primary Care Doctor - followup within 1 week - Dr. Richard Farr - ENT Doctor - followup within 1 week - Ask your physicians to followup on your C4 and [id number] Inhibitor results If you experience abnormal breath sounds, difficulty breathing, or fainting, please go to the Emergency Room Referrals: Richard Farr MD [Staff Physician] - 1 Week Disposition: HOME - Home Medications Comprehensive Discharge Medication List: Ambulatory Orders Aspirin [Ecotrin] 81 mg PO DAILY 06/17/17 Citalopram Hydrobromide [Celexa -] 40 mg PO DAILY 06/17/17 Lactobacillus Acidophilus [Probiotic Acidophilus] 1 tab PO DAILY 06/17/17 Montelukast Na [Singulair -] 10 mg PO DAILY 06/17/17 Oxcarbazepine 600 mg PO TID 06/17/17 Pregabalin [Lyrica -] 75 mg PO TID 06/17/17 Solifenacin Succinate [Vesicare -] 5 mg PO DAILY 06/17/17 Amlodipine Besylate [Norvasc -] 5 mg PO DAILY #30 tablet 06/18/17 Diphenhydramine [Benadryl Capsule -] 25 mg PO BID PRN #30 tab 06/18/17 Epinephrine [Epipen 2-Joao] 0.3 mg IJ ASDIR #1 kit 06/18/17 Methylprednisolone [Medrol Dose Joao] 4 mg PO ASDIR #21 tablet 06/18/17 Nicotine Patch [Nicoderm Patch -] 21 mg TD DAILY #30 patch 06/18/17 This patient is new to me today: Yes Date on this admission: 06/19/17 Emergency Visit: Yes ED Registration Date: 06/17/17 Care time: The patient presented to the Emergency Department on the above date and was hospitalized for further evaluation of their emergent condition. Critical Care patient: No - Discharge Referral Referred to [facility] No
--- NOTE | 2017-06-18 15:47 | PN ---
Teaching Attending Note Name of Resident: Amado Young ATTENDING PHYSICIAN STATEMENT I saw and evaluated the patient. I reviewed the resident's note and discussed the case with the resident. I agree with the resident's findings and plan as documented. SUBJECTIVE: No complaints. OBJECTIVE: Vital Signs Period Temp Pulse Resp BP Sys/Hurtado Pulse Ox Last 24 Hr 98.2 F-98.8 F 60-73 16-20 139-162/65-87 98-98 HEART: S1S2, RRR LUNGS: Clear ABDOMEN: Soft, non-tender, non-distended, normal BS EXTREMITIES: No edema ASSESSMENT AND PLAN: This is a 61 year old woman with a history of HTN, hyperlipidemia, angioedema who presented to the ER with tongue and throat swelling. 1. Angioedema - Improved - s/p fiberoptic laryngoscopy - Discharge on Medrol DosePak, Benadryl as needed - EpiPen - Discontinue Chantix - Follow-up with ENT/Allergy 2. HTN - Continue Norvasc 3. Hyperlpidemia - On no medication 4. Nicotine dependence - Continue nicotine patch - Chantix discontinued secondary to possible allergic reaction
== END 2017-06-18 11:36 | disposition home or self-care (01) | DRG 916 ==
LOC: JER 22:19 → JERBED 06-17 02:12 → UNDOADMIN 06-17 02:21 → JERBED 06-17 02:21 → JICU 06-17 02:55 → J7W 06-17 18:54
PROVIDERS: ADMIT Internal Medicine; ATTEND Internal Medicine
PROC: 0CJS8ZZ Inspection of Larynx, Via Natural or Artificial Opening Endoscopic (ICD-10-PCS; principal; 2017-06-17)
DX: T78.3XXA Angioneurotic edema, initial encounter (principal); I10 Essential (primary) hypertension; E78.5 Hyperlipidemia, unspecified; F17.200 Nicotine dependence, unspecified, uncomplicated; J45.909 Unspecified asthma, uncomplicated; M79.7 Fibromyalgia
CPT/HCPCS: 36415; 70360-TC; 71010-TC; 80048; 80053; 81003; 85025; 85027; 85651; 86140; 86160; 86161; 90732; 93005; 93010; 99285-25; G0009; J1644

== ENCOUNTER 2019-11-26 09:22 | Day surgery (SDC) | payer BC ==
[2019-11-23 17:31] VITALS: BMI 23.8
[2019-11-26 11:02] VITALS: TEMP 97.7
[2019-11-26 11:31] VITALS: BP 119/66; PULSE 68
--- NOTE | 2019-11-27 16:03 | PATH ---
Surgical Pathology Report Patient Name: [facility]BI [facility]. Rec. #: [id number] /Age/Gender: 1955 (Age: 64) / F Account: [id number] Location: [facility]-ENDOSCOPY Taken: 11/26/2019 Received: 11/26/2019 Reported: 11/27/2019 Physicians: SAM PETERSEN Specimen(s) Received A: CECUM B: ASCENDING COLON C: SIGMOID D: RECTUM Clinical History Diarrhea, abdominal pain Postoperative diagnosis: Abdominal pain, diverticulosis, rule out colitis Final Diagnosis A. CECUM, BIOPSY: COLONIC MUCOSA WITHOUT SIGNIFICANT PATHOLOGIC FINDINGS. B. ASCENDING COLON, BIOPSY: COLONIC MUCOSA WITHOUT SIGNIFICANT PATHOLOGIC FINDINGS. C. SIGMOID COLON, BIOPSY: COLONIC MUCOSA WITHOUT SIGNIFICANT PATHOLOGIC FINDINGS. D. RECTUM, BIOPSY: COLONIC MUCOSA WITH SMALL LYMPHOID AGGREGATE. Electronically Signed Tabby Cano M.D. Gross Description A. Received in formalin, labeled "biopsy cecum" are 2 lott, irregular portions of soft tissue measuring 0.2 and 0.5 cm. in greatest dimension. The specimens are submitted in toto in one cassette. B. Received in formalin, labeled "biopsy ascending colon" is a lott, irregular portion of soft tissue measuring 0.3 cm. in greatest dimension. The specimen is submitted in toto in one cassette. C. Received in formalin, labeled "biopsy sigmoid" are 2 lott, irregular portions of soft tissue measuring 0.3 and 1.2 cm. in greatest dimension. The specimens are submitted in toto in one cassette. D. Received in formalin, labeled "biopsy rectum" are 2 lott, irregular portions of soft tissue measuring 0.3 and 0.9 cm. in greatest dimension. The specimens are submitted in toto in one cassette. DL11/26/2019 saudi/11/26/2019
== END 2019-11-26 12:03 | disposition home or self-care (01) ==
LOC: JASU-ENDO 09:22
PROVIDERS: ATTEND Internal Medicine Gastroenterology
PROC: 0DBN8ZX Excision of Sigmoid Colon, Via Natural or Artificial Opening Endoscopic, Diagnostic (ICD-10-PCS; 2019-11-26)
PROC: 0DBP8ZX Excision of Rectum, Via Natural or Artificial Opening Endoscopic, Diagnostic (ICD-10-PCS; 2019-11-26)
PROC: 0DBH8ZX Excision of Cecum, Via Natural or Artificial Opening Endoscopic, Diagnostic (ICD-10-PCS; 2019-11-26)
PROC: 0DBK8ZX Excision of Ascending Colon, Via Natural or Artificial Opening Endoscopic, Diagnostic (ICD-10-PCS; principal; 2019-11-26 09:30)
DX: K62.89 Other specified diseases of anus and rectum (principal); R19.7 Diarrhea, unspecified; R10.11 Right upper quadrant pain; I10 Essential (primary) hypertension; K21.9 Gastro-esophageal reflux disease without esophagitis
CPT/HCPCS: 88305-TC